=== PATIENT | male | born 1935 | race Caucasian/White ===

== ENCOUNTER 2021-08-21 14:27 | Inpatient (IN) | payer MEDICARE, BC ==
[~2021-08-21] VITALS: Ht 175.3 cm; Wt 88.0 kg
[2021-08-21 15:03] LABS: PCO2 Arterial 77.5 mmHg (35-45); PO2 Arterial 218 mmHg (80-100); pH Blood Arterial 7.24 (7.35-7.45)
[2021-08-21] MEDS ORDERED: Pataday2.5 ML (15:06)
[2021-08-21] MEDS ORDERED: TIMO.25OPS BOTHEYES (15:08)
[2021-08-21 15:09] LABS: BASOPHILS ABSOLUTE AUTO 0.04 K/mm3 (0.00-0.23); BASOPHILS PERCENT AUTO 0 % (0-2); EOSINOPHILS PERCENT AUTO 2 % (0-6); Hematocrit 40.2 % (37.0-53.0); Hemoglobin 12.2 g/dL (13.5-17.5); IMMATURE GRAN ABSOLUTE AUTO 0.02 K/mm3 (0.00-0.10); IMMATURE GRAN PERCENT AUTO 0 % (0-1); LYMPHOCYTES ABSOLUTE AUTO 1.57 K/mm3 (0.84-5.20); LYMPHOCYTES PERCENT AUTO 17 % (21-46); MONOCYTES ABSOLUTE AUTO 0.95 K/mm3 (0.16-1.47); MONOCYTES PERCENT AUTO 10 % (4-13); Mean Corpuscular HGB 30.3 pg (26.0-34.0); Mean Corpuscular HGB Conc 30.3 g/dL (31.5-36.5); Mean Corpuscular Volume 100 fL (80-100); Mean Platelet Volume 9.8 fL (9.1-12.4); NEUTROPHILS ABSOLUTE AUTO 6.52 K/mm3 (1.96-9.15); NEUTROPHILS PERCENT AUTO 70 % (41-73); Platelet Count 252 K/mm3 (150-400); RDW Coefficient Variation 12.7 % (11.7-14.2); RDW Standard Deviation 47.2 fL (35.1-46.3); Red Blood Cell Count 4.03 M/mm3 (4.30-5.90)
[2021-08-21 15:21] LABS: Albumin/Globulin Ratio 0.7 (0.8-1.8); Bilirubin, Total 0.3 mg/dL (0.1-1.0); Bun/Creatinine Ratio 37.1 (12.0-20.0); Calcium, Blood 8.8 mg/dL (8.5-10.1); Creatinine, Blood 0.86 mg/dL (0.60-1.20); Globulin, Blood 4.1 g/dL (2.2-4.0); Potassium, Blood 4.3 mmol/L (3.5-5.5); Total Protein, Blood 7.1 g/dL (6.4-8.2)
[2021-08-21 16:44] LABS: Influenza A, PCR NEGATIVE (NEGATIVE); Influenza B, PCR NEGATIVE (NEGATIVE); Resp Syncytial Virus, PCR NEGATIVE (NEGATIVE); SARS-Cov-2 (COVID-19) PCR, MMC NEGATIVE (NEGATIVE)
[2021-08-21 20:17] LABS: PCO2 Arterial 54.4 mmHg (35-45); PO2 Arterial 94.4 mmHg (80-100); pH Blood Arterial 7.38 (7.35-7.45)
[2021-08-21 20:20] LABS: CPK Creatine Kinase 49 U/L (39-308)
[2021-08-21] MEDS ORDERED: OXYC5 PO (20:49)
--- NOTE | 2021-08-21 21:14 | NUR ---
PT ARRIVED BY VIJAY. PT REQUESTING OXYCODONE 5MG Q4 HRS DUE TO CHRONIC BACK PAIN. PT STATING THE HE FELT LIKE HE WAS WITHDRAWING FROM OXYCODONE. DAUGHTER AT BEDSIDE PROVIDING INFORMATION. WAITING FOR PT'S TO ARRIVE BECAUSE PT IS REQUESTING SHE STAY AT BEDSIDE SINCE SHE KNOWS ALL OF HIS MEDICAL INFORMATION AND HIS NEEDS. CALL LIGHT IS WITHIN REACH.
--- NOTE | 2021-08-21 21:17 | NUR ---
DR GONZALES CONTACTED FOR REQUEST PER PT TO RESUME OXYCODONE 5MG Q4 PO. ORDER TO RESUME MEDICATION OBTAINED.
[2021-08-22 03:57] LABS: BASOPHILS ABSOLUTE AUTO 0.05 K/mm3 (0.00-0.23); BASOPHILS PERCENT AUTO 1 % (0-2); EOSINOPHILS ABSOLUTE AUTO 0.24 K/mm3 (0.00-0.68); EOSINOPHILS PERCENT AUTO 3 % (0-6); Hematocrit 39.6 % (37.0-53.0); IMMATURE GRAN ABSOLUTE AUTO 0.01 K/mm3 (0.00-0.10); IMMATURE GRAN PERCENT AUTO 0 % (0-1); LYMPHOCYTES ABSOLUTE AUTO 1.58 K/mm3 (0.84-5.20); LYMPHOCYTES PERCENT AUTO 19 % (21-46); MONOCYTES PERCENT AUTO 11 % (4-13); Mean Corpuscular HGB 30.2 pg (26.0-34.0); Mean Corpuscular HGB Conc 30.3 g/dL (31.5-36.5); Mean Corpuscular Volume 100 fL (80-100); Mean Platelet Volume 9.7 fL (9.1-12.4); NEUTROPHILS ABSOLUTE AUTO 5.54 K/mm3 (1.96-9.15); NEUTROPHILS PERCENT AUTO 67 % (41-73); Platelet Count 220 K/mm3 (150-400); RDW Coefficient Variation 12.6 % (11.7-14.2); RDW Standard Deviation 46.4 fL (35.1-46.3); Red Blood Cell Count 3.98 M/mm3 (4.30-5.90); White Blood Cell Count 8.32 K/mm3 (4.00-11.30)
[2021-08-22 04:16] LABS: Albumin, Blood 2.9 g/dL (3.4-5.0); Albumin/Globulin Ratio 0.8 (0.8-1.8); Bilirubin, Total 0.2 mg/dL (0.1-1.0); Calcium, Blood 8.5 mg/dL (8.5-10.1); Creatinine, Blood 0.8 mg/dL (0.60-1.20); Globulin, Blood 3.8 g/dL (2.2-4.0); Potassium, Blood 3.8 mmol/L (3.5-5.5); Total Protein, Blood 6.7 g/dL (6.4-8.2)
[2021-08-22 04:29] LABS: CPK Creatine Kinase 41 U/L (39-308)
--- NOTE | 2021-08-22 05:54 | NUR ---
SHIFT SUMMARY PT IS ALERT AND ORIENTED WITH SOME AGITATION AT TIMES. VITALS ARE STABLE AND PT IS CURRENTLY ON 5LNC WITH SATS ABOVE 90%, HAS WORN BIPAP WITH BI OF 5L; AT TIMES. PT DENIES CHEST PAIN AND SOB. HE HAS CHRONIC BACK PAIN AND IS BEING MEDICATED PER EMAR. PT HAS CONDOM CATH ON AN DRAINING AT TIMES HE HAS TO STAND TO URINATE AND GETS AGITATED IF STAFF IS NOT QUICK ENOUGH TO ASSIST. IS AT BEDSIDE. CALL LIGHT IS WITHIN REACH. BED ALARM IS ACTIVE DUE TO PT NOT CALLING WHEN ATTEMPTING TO GET UP AND IS VERY WEAK WITH AN UNSTABLE GAIT.
--- NOTE | 2021-08-22 10:32 | NUR ---
UPDATE CONDOM CATH LEAKING, CATH D/C'D.
--- NOTE | 2021-08-22 11:20 | NUR ---
TRANSFER UPDATE REPORT GIVEN TO [facility] FLOOR RN AT 1044. PT TRANSFERED TO [place] [id number] VIA HOSPITAL BED AND OCCOMPANIED BY TWO WINTER SPORTS MANAGER. PT ON 4L NC DURING TRANSFER. PT BELGONONGINGS WITH PT AND DAUGHTER DURING TRANSFER. PT CHART WITH PT DURING TRANSFER. PT EYE DROPS TRANSFERED WITH PT.
--- NOTE | 2021-08-22 11:22 | NUR ---
TRANSFER TO MEDICAL FLOOR REPORTS RECIEVED FROM ELEVATOR EXAMINER- DUNG. PT ARRIVED VIA BED AND WAS A TEAM LIFT TRANSFER TO BED. PT AND DAUGHTER ORIENTED TO ROOM, CALL LIGHT, BED ALARM, PHONE AND REMOTE. WARM BLANKET PROVIDED AND FRESH ICE WATER. PT DENIES ANY PAIN AT THIS TIME. PT LEFT RESTING IN BED WITH EYES CLOSED, BED IN LOWEST POSITION, CALL LIGHT WITHIN REACH AND DAUGHTER AT BEDSIDE.
[2021-08-22 13:15] LABS: Base Excess Venous 20.1 mmol/L; Bicarbonate Venous 38.7 mmol/L (24.0-30.0); PCO2 Venous 77.3 mmHg (38-42); PO2 Venous 29.2 mmHg (38-42); pH Blood Venous 7.38 (7.34-7.37)
--- NOTE | 2021-08-22 17:50 | NUR ---
SHIFT SUMMARY 85 MALE ADDMITTED WITH CHF. PT WAS VISITING FROM [place] FOR HIS BROTHERS WHEN HE WAS ADMITTED. AFTER ARRIVAL TO MEDICAL FLOOR TODAY PT WAS NOTED TO HAVE INCREASED CONFUSION, AGGITATION AND RESTLESSNESS. PT WAS GIVEN IV LASIX THAT PROMPLTY RESULTED IN FREQUENT URGENT URINATION. PT AHS BEEN CONT BUT WAS VERY UNSTEADY ON HIS FEET AND WEAK. RN AND PELT GRADER FREQEUENTLY EVERY 5-10 MINUTES TO ASSIST WITH URINAL. RAMIREZ ORDER RECIEVED AND PT REFUSED R/T HX OF PAIN WITH PREVIOUS CATHETER PLACEMENTS. PT DID AGREE TO HAVE CONDOM CATH PLACED, CONDOM CATH IN PLACE DRAINING C/Y/U. PT DID HAVE SEVER SOB AND PURSED LIP BREATHING, NOTIFIED AND IN TO ASSESS. VBG'S OBTAINED SHOWING INCREASING ABNORMAILITIES. RTCONSULTED AND PT PLACED BACK ON BIPAP. PT MENTATION DID SEEM TO IMPROVE GREATLY AND PT WAS ABLE TO SIT UP TO EDGE OF BED AND EAT AND ANSWER QUESTIONS APPROPRIATELY.
[2021-08-22 19:41] LABS: Bun/Creatinine Ratio 32.6 (12.0-20.0); Calcium, Blood 8.7 mg/dL (8.5-10.1); Creatinine, Blood 0.83 mg/dL (0.60-1.20); Potassium, Blood 3.5 mmol/L (3.5-5.5)
[2021-08-23 04:38] LABS: BASOPHILS ABSOLUTE AUTO 0.04 K/mm3 (0.00-0.23); BASOPHILS PERCENT AUTO 0 % (0-2); EOSINOPHILS ABSOLUTE AUTO 0.21 K/mm3 (0.00-0.68); EOSINOPHILS PERCENT AUTO 2 % (0-6); Hematocrit 40.1 % (37.0-53.0); Hemoglobin 12.2 g/dL (13.5-17.5); IMMATURE GRAN ABSOLUTE AUTO 0.03 K/mm3 (0.00-0.10); IMMATURE GRAN PERCENT AUTO 0 % (0-1); LYMPHOCYTES ABSOLUTE AUTO 1.96 K/mm3 (0.84-5.20); LYMPHOCYTES PERCENT AUTO 21 % (21-46); MONOCYTES ABSOLUTE AUTO 1.12 K/mm3 (0.16-1.47); MONOCYTES PERCENT AUTO 12 % (4-13); Mean Corpuscular HGB 29.8 pg (26.0-34.0); Mean Corpuscular HGB Conc 30.4 g/dL (31.5-36.5); Mean Corpuscular Volume 98 fL (80-100); Mean Platelet Volume 9.9 fL (9.1-12.4); NEUTROPHILS ABSOLUTE AUTO 6.02 K/mm3 (1.96-9.15); NEUTROPHILS PERCENT AUTO 64 % (41-73); Platelet Count 214 K/mm3 (150-400); RDW Coefficient Variation 12.5 % (11.7-14.2); Red Blood Cell Count 4.09 M/mm3 (4.30-5.90); White Blood Cell Count 9.38 K/mm3 (4.00-11.30)
[2021-08-23 04:55] LABS: Bun/Creatinine Ratio 36.8 (12.0-20.0); Calcium, Blood 8.8 mg/dL (8.5-10.1); Creatinine, Blood 0.79 mg/dL (0.60-1.20); Potassium, Blood 3.1 mmol/L (3.5-5.5)
--- NOTE | 2021-08-23 06:43 | NUR ---
SHIFT SUMMARY PT IS AN 85 Y/O MALE, ADMITTED FOR CHF EXACERBATION. HE IS A&O X 2, MILDLY FORGETFUL AT TIMES AND VERY FIDGETY. PT IS ON BIPAP WITH 5L BLEED IN DURING THE NIGHT, SATTING AT 91-93%. DESATS VERY EASILY WHILE ON NC OR WITH ANY EXERTION. REMAINS AT BEDSIDE. PT MEDICATED FOR PAIN WITH PRN TYLENOL. NO C/O NAUSEA. VITAL SIGNS OTHERWISE STABLE. NO ACUTE CHANGES IN PT CONDITION NOTED DURING THE NIGHT. WILL CONTINUE TO MONITOR AND TREAT PER EMAR UNTIL HAND OFF TO DAY SHIFT RN.
--- NOTE | 2021-08-23 08:32 | NUR ---
MORNING MEDICATIONS IN ROOM COMPUTER UNABLE TO LOG IN SHOWING MESSAGE DESKTOP NOT AVAILABLE. ATTEMTPTED MULTIPLE RESETS WITH NO CHANGE. VERIFIED MEDICATIONS USING COMPUTER IN [place] JUST OUTSIDE THE PATIENTS ROOM PRIOR TO ADMINISTRATION.
[2021-08-23] MEDS ORDERED: METF500 PO (09:52)
[2021-08-23] MEDS ORDERED: LISI20 PO (09:52)
[2021-08-23] MEDS ORDERED: BUPR150ER PO (09:53)
[2021-08-23] MEDS ORDERED: AMLO5 PO (09:53)
[2021-08-23 15:56] LABS: Bun/Creatinine Ratio 46.6 (12.0-20.0); Calcium, Blood 8.4 mg/dL (8.5-10.1); Creatinine, Blood 0.69 mg/dL (0.60-1.20); Potassium, Blood 4.3 mmol/L (3.5-5.5)
--- NOTE | 2021-08-23 18:27 | NUR ---
SHIFT SUMMARY PT INITIALLY REPORTED THAT HE TOOK A MORE FREQUENT REGIMINE OF OXYCODONE AT HOME FOR CHRONIC PAIN. PER DR SOLARES, PT'S ORDER CHANGED FROM Q12 TO Q6 W/ PT REPORTING SIGNIFICANT RELIEF. PT HAS BEEN PLEASANT IN ROOM FOR THE DURATION OF SHIFT W/ AND SON PRESENT. PT EATING AND TOLERATING DIET WELL. CONDOM CATHETER IN PLACE. PT HAS BEEN REDUCED TO 1LPM THROUGHOUT SHIFT W/ PT DENYING ANY INCREASE IN DYSPNEA. PT RESTING IN ROOM AT THIS TIME. WILL CONTINUE TO MONITOR AND UPDATE NECESSARY.
[2021-08-23] MEDS ORDERED: MONT10T PO (20:15)
[2021-08-23] MEDS ORDERED: CYMBALTA30 M2 PO (20:16)
[2021-08-23] MEDS ORDERED: Ventolin/Prove6.7 GM INH (20:17)
[2021-08-23] MEDS ORDERED: Triamcinolone A15 G3 TOP (20:19)
[2021-08-23] MEDS ORDERED: RHOPRESSA2.5 ML BOTHEYES (20:27)
[2021-08-23] MEDS ORDERED: SYMBICORT 16010.2 GM INH (20:27)
[2021-08-24 05:37] LABS: Calcium, Blood 8.9 mg/dL (8.5-10.1); Creatinine, Blood 0.72 mg/dL (0.60-1.20); Potassium, Blood 3.9 mmol/L (3.5-5.5)
--- NOTE | 2021-08-24 07:22 | NUR ---
PT A& 0X4. CARDIAC DIET. TELE: VITACH. V/S STABLE. O2 AT 1.5 LPM. CPAP AT HS. OXYCODONE GIVEN FOR L) LEG AND BACK PAIN PER EMAR. 1-2 ASSIST WITH WALKER+GB. BRIEFS ON. INCONTINENT OF URINE/BOWEL AT TIMES. IV TO R) FA. WILL CONTINUE TO MONITOR.
[2021-08-24] MEDS ORDERED: TORSE20 PO (11:58)
[2021-08-24] MEDS ORDERED: POTCHL20ER PO (11:59)
--- NOTE | 2021-08-24 14:27 | NUR ---
PT AWAKE DURING SHIFT REPORT. A&O, PLEASANT AND CO-OP WITH CARE. PER SHIFT REPORT, PT TO D/C TO HOME WHEN O2 ABLE TO TITRATE TO 1L. PT ON 1.5L DURING NOC SHIFT AND DECREASED TO 1L WITH BIOX REMAINING AT 91-92%. DR LEWIS TO TO SEE PT THIS AM AND DISCUSS PLAN OF CARE. PT WANTING TO GO HOME. ORDERS PLACED FOR HOME O2 EVAL. RT NOTIFIED AND ASSISTED PT. D/C ORDERS PLACED. MEDS FA[place]ED TO [facility] [place], PER PT AND SON REQUEST. [facility] HERE TO BRING O2 TANK AND REVIEW O2 NEEDS. PT'S SON THEN WENT TO [facility] TO OBTAIN O2 CONCENTRATOR AND MORE TANKS. IV SITE AND TELE DC'D. D/C INSTRUCTIONS REVIEWED WITH PT, , AND SON; ALL VERBALIZED UNDERSTANDING. PT ASSISTED OUT TO SON'S VAN VIA W/C WHEN READY.
== END 2021-08-24 14:18 | disposition home or self-care (01) | DRG 291 ==
LOC: ER 14:27 → PCU 18:53 → MEDS 08-22 11:01
PROVIDERS: Emergency Medicine; Hospitalist; Physician Assistant; Student in an Organized Health Care Education/Training Program; ADMIT Internal Medicine
PROC: 5A09457 Assistance with Respiratory Ventilation, 24-96 Consecutive Hours, Continuous Positive Airway Pressure (ICD-10-PCS; principal; 2021-08-21)
PROC: 3E03329 Introduction of Other Anti-infective into Peripheral Vein, Percutaneous Approach (ICD-10-PCS; 2021-08-21)
DX: I11.0 Hypertensive heart disease with heart failure (principal); J96.01 Acute respiratory failure with hypoxia; I50.31 Acute diastolic (congestive) heart failure; J96.02 Acute respiratory failure with hypercapnia; E87.2 Acidosis; G93.49 Other encephalopathy; E11.9 Type 2 diabetes mellitus without complications; Z20.822 Contact with and (suspected) exposure to COVID-19; E87.6 Hypokalemia; J45.909 Unspecified asthma, uncomplicated
CPT/HCPCS: 0241U; 36415; 36600; 71045; 80048; 80053; 82550; 82803; 82947; 83880; 84145; 84484; 85025; 93005; 93010; 93306; 94640; 94660; 94664; 94761; 94762; 96374; 96375; 99285-25; A9270; J0360; J0456; J0696; J1650; J1940; J3480; J7030; J7050